=== PATIENT | male | born 1950 | race Caucasian/White ===

== ENCOUNTER 2017-04-14 20:49 | Emergency (ER) | payer OTHER ==
[2017-04-14] MEDS ORDERED: IPRATROPIUM/ALBUTEROL 3 ML DEYVIAL IH ONE (21:06)
--- NOTE | 2017-04-14 21:27 | CPEKG ---
Heart Rate: 95 RR Interval: 632 P-R Interval: 160 QRSD Interval: 70 QT Interval: 332 QTC Interval: 418 P [place]: 28 QRS [place]: -2 T Wave [place]: -7 EKG Severity - ABNORMAL ECG - EKG Impression: SINUS RHYTHM EKG Impression: PROBABLE INFERIOR INFARCT, AGE INDETERMINATE Electronically Signed By: Loren Rhoades 14-Apr-2017 22:53:44
[2017-04-14 21:35] LABS: % IMMATURE GRANULYOCYTES 0.3 % (0.0-1.1); ABSOLUTE IMMATURE GRANULOCYTES 0.02 10^3/uL (0.00-0.10); ADD DIFF? NO; ADD MORPH? NO; ADD SCAN? NO; ATYPICAL LYMPHOCYTE FLAG 20 (0-99); FRAGMENT RBC FLAG 0 (0-99); HEMATOCRIT 39.4 % (40.0-51.0); HEMOGLOBIN 14.2 g/dL (13.7-17.5); LEFT SHIFT FLG 0 (0-99); LIPEMIA HEMOLYSIS FLAG 90 (0-99); MEAN CELL HEMOGLOBIN 30.9 pg (27.9-34.1); MEAN CELL VOLUME 85.8 fL (81.5-99.8); MEAN PLATELET VOLUME 10.3 fL (8.7-11.7); PLATELET CLUMPS FLAG 0 (0-99); PLATELET COUNT 158 10^3/uL (150-400); RED BLOOD CELL COUNT 4.59 10^6/uL (4.40-6.38)
[2017-04-14] MEDS ORDERED: methylPREDNISolone SOD SUCC 125 MG/2 ML VIAL IVP ONE (21:36)
--- NOTE | 2017-04-14 21:41 | EDPHY ---
H & P Time Seen by Provider: 04/14/17 21:05 HPI/ROS: CHIEF COMPLAINT: 2 weeks of cough HISTORY OF PRESENT ILLNESS: 66-year-old male with history of diabetes presents reporting that for 2 weeks he has had upper respiratory infection, cough, sore throat. Symptoms have been gradually worsening and the patient was given azithromycin 4 days ago. Despite the antibiotics the patient noted cough with sputum tented with hemoptysis tonight. He has had intermittent fevers. Reports he can't sleep at night secondary to the coughing. Granddaughter was recently diagnosed with whooping cough. Patient denies any nausea or vomiting. Reports his glucose has been running somewhat high. No history of DKA. Also complaining of mild left lower chest discomfort that has been present for several days. No palpitations, lightheadedness, or fainting. REVIEW OF SYSTEMS: Aside from elements discussed in the HPI, a comprehensive 10-point review of systems was reviewed and is negative. PAST MEDICAL HISTORY: Diabetes. SOCIAL HISTORY: Nonsmoker. VITAL SIGNS Reviewed by me. GENERAL: Well-developed, well-nourished, wheezy cough on examination. Slightly tachypneic. HEENT: Atraumatic. Eyes: No icterus, no injection. Mouth: moist mucous membranes. Mild posterior erythema. No exudates. Neck: supple with no adenopathy. LUNGS: Coarse breath sounds, wheezy cough, no rhonchi. CARDIAC: Borderline tachycardic. No rubs murmurs or gallops. ABDOMEN: Soft, nontender, nondistended, bowel sounds normal. BACK: No CVA tenderness. EXTREMITIES: No trauma. No edema. Range of motion is normal throughout. NEURO: Alert and oriented, grossly nonfocal. SKIN: Warm and dry, no rash. PSYCHIATRIC: Normal mentation, no agitation. Smoking Status: Former smoker Constitutional: Initial Vital Signs Temperature (C) 37.4 C 04/14/17 21:00 Heart Rate 87 04/14/17 21:00 Respiratory Rate 20 04/14/17 21:00 Blood Pressure 152/87 H 04/14/17 21:00 O2 Sat (%) 94 04/14/17 21:00 O2 Delivery Mode Room Air Allergies/Adverse Reactions: No Known Allergies Allergy (Verified 04/14/17 20:58) Home Medications: Medication Instructions Recorded Aspirin [Aspirin 81mg (OTC)] 12/27/14 Multivitamin (OTC) 12/27/14 SIMVASTATIN 12/27/14 metFORMIN HCL [Glucophage 500 mg 12/27/14 (*)] Albuterol Hfa Anes Only [Proair 2 puffs IH QID #1 mdi 04/14/17 Hfa Icu (*)] Insulin Glargine [Lantus 100 20 unit 04/14/17 UNITS/ML (*)] levOFLOXACIN [levAQUIN] 750 mg PO DAILY #7 tab 04/14/17 predniSONE 10 - 40 mg PO DAILY #12 tab 04/14/17 Medical Decision Making - Diagnostics Imaging Results: Imaging Impressions Chest X-Ray 04/14/17 21:06 Impression: No pneumonia. Mild airways disease. Findings discussed with Emergency Department physician, Loren Rhoades M.D., on April 14, 2017 at 2136. Imaging: Discussed imaging studies w/ thread grinder tool Radiologist, I viewed and interpreted images myself ED Course/Re-evaluation: Chest x-ray demonstrates no acute pneumonia. Patient does have some airways disease and central bronchial fullness. Patient received a DuoNeb followed by a neb treatment. IV was placed and labs were obtained. IV fluids were provided. Patient will be discharged with albuterol m dose inhaler, 1st dose of levofloxacin was provided in the emergency department given his history of worsening cough with hemoptysis despite azithromycin. He will also be given a 9 day prednisone taper. Differential Diagnosis: Differential diagnosis for the patient's cough was considered including but not limited to viral versus bacterial bronchitis, asthma, COPD, pulmonary emboli, upper respiratory infection, lower respiratory infection, and bronchospasm. - Data Points Laboratory Results: Laboratory Results 04/14/17 21:30 04/14/17 21:30 04/14/17 04/14/17 21:30 21:30 WBC 7.97 10^3/uL 10^3/uL (3.80-9.50) RBC 4.59 10^6/uL 10^6/uL (4.40-6.38) Hgb 14.2 g/dL g/dL (13.7-17.5) Hct 39.4 % L % (40.0-51.0) MCV 85.8 fL fL (81.5-99.8) MCH 30.9 pg pg (27.9-34.1) MCHC 36.0 g/dL g/dL (32.4-36.7) RDW 12.0 % % (11.5-15.2) Plt Count 158 10^3/uL 10^3/uL (150-400) MPV 10.3 fL fL (8.7-11.7) Neut % (Auto) 63.3 % % (39.3-74.2) Lymph % (Auto) 24.6 % % (15.0-45.0) [place] % (Auto) 9.5 % % (4.5-13.0) Eos % (Auto) 2.0 % % (0.6-7.6) Baso % (Auto) 0.3 % % (0.3-1.7) Nucleat RBC Rel Count 0.0 % % (0.0-0.2) Absolute Neuts (auto) 5.05 10^3/uL 10^3/uL (1.70-6.50) Absolute Lymphs (auto) 1.96 10^3/uL 10^3/uL (1.00-3.00) Absolute Monos (auto) 0.76 10^3/uL 10^3/uL (0.30-0.80) Absolute Eos (auto) 0.16 10^3/uL 10^3/uL (0.03-0.40) Absolute Basos (auto) 0.02 10^3/uL 10^3/uL (0.02-0.10) Absolute Nucleated RBC 0.00 10^3/uL 10^3/uL (0-0.01) Immature Gran % 0.3 % % (0.0-1.1) Immature Gran # 0.02 10^3/uL 10^3/uL (0.00-0.10) Sodium 140 mEq/L mEq/L (134-144) Potassium 4.4 mEq/L mEq/L (3.5-5.2) Chloride 97 mEq/L mEq/L (97-110) Carbon Dioxide 25 mEq/l mEq/l (22-31) Anion Gap 18 mEq/L H mEq/L (8-16) BUN 20 mg/dL mg/dL (7-23) Creatinine 1.0 mg/dL mg/dL (0.7-1.3) Estimated GFR > 60 Glucose 149 mg/dL H mg/dL (70-100) Calcium 8.8 mg/dL mg/dL (8.5-10.4) Troponin I < 0.012 ng/mL ng/mL (0.000-0.034) Medications Given: Discontinued Medications Albuterol (Proventil Neb) 3 ml IH EDNOW ONE Stop: 04/14/17 21:46 Last Admin: 04/14/17 21:57 Dose: Not Given Albuterol Sulfate (Proventil Inh Prepack) 1 mdi TAKEHOME EDNOW ONE Stop: 04/14/17 21:56 Last Admin: 04/14/17 22:09 Dose: 1 mdi Albuterol/Ipratropium (Duoneb) 3 ml IH EDNOW ONE Stop: 04/14/17 21:07 Last Admin: 04/14/17 21:16 Dose: 3 ml Methylprednisolone Sodium Succinate (Solu-Medrol) 125 mg IVP EDNOW ONE Stop: 04/14/17 21:37 Last Admin: 04/14/17 21:46 Dose: 125 mg Departure - Departure Disposition: Home, Routine, Self-Care Clinical Impression: Cough with hemoptysis, Bronchospasm with bronchitis, acute Acute bronchitis Qualifiers: Bronchitis organism: other organism Qualified Code(s): J20.8 - Acute bronchitis due to other specified organisms Condition: Good Instructions: Albuterol (By breathing), Prednisone (By mouth), Levofloxacin ( By mouth), Acute Bronchitis (ED), Chronic Cough (ED), Hemoptysis (ED) Additional Instructions: Please use the metered dose inhaler to help control your coughing and wheezing and shortness of breath. You been given a prescription of prednisone. Please take this as directed for the next 7 days starting tomorrow. You been given a prescription of levofloxacin. Please begin taking this as directed. You may also use Tessalon Perles to help control your cough. If you have a sore throat, use Tylenol, or ibuprofen. Throat lozenges, throat sprays, or salt water gargles may also be helpful. Seek care urgently or follow up at the emergency department if he develop a fever, worsening symptoms despite the above treatment, shortness of breath, chest pain, vomiting, or other concerns. Referrals: Nahum Mcgill MD [Primary Care Provider] - As per Instructions Prescriptions: Albuterol Hfa Anes Only [Proair Hfa Icu (*)] 2 puffs IH QID #1 mdi levOFLOXACIN [levAQUIN] 750 mg PO DAILY #7 tab predniSONE 10 - 40 mg PO DAILY #12 tab
[2017-04-14] MEDS ORDERED: ALBUTEROL 3 ML DEYVIAL IH ONE (21:45)
[2017-04-14 21:47] LABS: ANION GAP 18 mEq/L (8-16); CALCIUM 8.8 mg/dL (8.5-10.4); CARBON DIOXIDE 25 mEq/l (22-31); CHLORIDE 97 mEq/L (97-110); GLOMERULAR FILTRATION RATE > 60; GLUCOSE 149 mg/dL (70-100); POTASSIUM 4.4 mEq/L (3.5-5.2); SODIUM 140 mEq/L (134-144)
[2017-04-14] MEDS ORDERED: ALBUTEROL INH PREPACK MDI TAKEHOME ONE (21:55)
[2017-04-14 21:58] VITALS: PULSE 96; RESP 18; O2SAT 92
[2017-04-14 22:00] LABS: TROPONIN I < 0.012 ng/mL (0.000-0.034)
[2017-04-14 22:23] VITALS: BP 142/68; TEMP 99
== END 2017-04-14 22:30 | disposition home or self-care (01) ==
LOC: CED 20:49
DX: J20.9 Acute bronchitis, unspecified (principal); R04.2 Hemoptysis; E11.9 Type 2 diabetes mellitus without complications; Z79.4 Long term (current) use of insulin; Z79.82 Long term (current) use of aspirin; Z87.891 Personal history of nicotine dependence
CPT/HCPCS: 71020; 93005; 99285; J2930; 80048-PO; 84484-PO; 85025-PO

== ENCOUNTER → 2018-03-06 | Outpatient (CLI) | payer OTHER | LOC: BHFA 14:00 | PROVIDERS: ATTEND Internal Medicine Cardiovascular Disease | DX: R00.2 Palpitations (principal) | CPT/HCPCS: 93306-PO ==